=== PATIENT | female | born 1955 | race Caucasian/White ===

== ENCOUNTER 2017-07-20 02:41 | Day surgery (SDC) | payer OTHER ==
[2017-05-26 08:33] VITALS: Ht 157.5 cm; Wt 59.9 kg
[~2017-07-20] VITALS: Ht 157.5 cm; Wt 59.9 kg
[2017-07-20] VITALS (7 sets, daily range): BP systolic 96–112; BP diastolic 66–81
[~2017-07-20 02:41] MED LIST: ASCO-342 PO; ASPI81TA15 PO; ATOR10TA65 PO; ATOR20TA22 PO; BLOO-1764 MC; CALC1TAB32 PO; CHOL200022 PO; CIPR-214 PO; DEXL60CA6 PO; FAMO-67 PO; FAMO20TA28 PO; FLU45SYR17 IM; GLUC-198 PO; HYDR-2966 PO; HYDR-4308 PO; HYDR-4309 PO; IBUP600T22 PO; IRON18TA2 PO; LACT1CAP6 PO; LANC-1295 MC; LOR5/325 PO; LUTE6CAP11 PO; MAGN250T34 PO; MET500 PO; METF-420 PO; NITR-105 PO; OMEP40CA48 PO; ONDA-2 PO; ONDA4TAB97 PO; PHEN200T32 PO; PNEI IM; SUCR1TAB85 PO; TAMS0.4C25 PO; TOP100 PO; TRAZ-133 PO; UBIQ100C3 PO; ZOST19404 SQ
[2017-07-20] MEDS: NORMOSOL R SOLN(*) 1000 ML BAG 1,000 ML IV PRN ×3 (06:16→11:09)
[2017-07-20] MEDS ORDERED: metroNIDAZOLE* 500MG/100ML BAG 100 ML IVPB ONE (06:45)
[2017-07-20] MEDS ORDERED: MIDAZOLAM 2 MG/2 ML VIAL IVP PRN (06:45)
[2017-07-20] MEDS ORDERED: FAMOTIDINE 20 MG TAB PO ONE (06:45)
[2017-07-20] MEDS ORDERED: LEVOFLOXACIN/D5W*500 MG/100 ML 100 ML IVPB ONE (06:45)
[2017-07-20] MEDS ORDERED: LIDOCAINE/SOD BICARB 8.4% SYR ID ONE (06:45)
[2017-07-20] MEDS ORDERED: fentaNYL CITR 100 MCG/2 ML AMP ONE ×3 (06:53→09:39)
[2017-07-20] MEDS ORDERED: MIDAZOLAM 2 MG/2 ML VIAL ONE (06:53)
[2017-07-20] MEDS ORDERED: ROCURONIUM BROM 10 MG/ML 10 ML ONE (06:56)
[2017-07-20] MEDS ORDERED: LIDOCAINE MPF 1% 5 ML VIAL ONE (06:56)
[2017-07-20] MEDS ORDERED: ONDANSETRON 4 MG/2 ML VIAL ONE (06:56)
[2017-07-20] MEDS ORDERED: PROPOFOL EMUL(*) 10MG/ML 20 ML 20 ML ONE (06:56)
[2017-07-20] MEDS ORDERED: DEXAMETHASONE SOD PHOS 10MG/ML ONE (06:56)
[2017-07-20] MEDS ORDERED: IOPAMIDOL 61% 75 ML INFUS BTL 0 ML ONE (06:57)
[2017-07-20] MEDS ORDERED: ROPIVACAINE 0.5% 20 ML VIAL ONE (06:57)
[2017-07-20] MEDS ORDERED: DOCU-416 PO (09:17)
[2017-07-20] MEDS ORDERED: OXYC-854 PO (09:17)
--- NOTE | 2017-07-20 09:20 | Short(Outpt) Discharge Summary ---
Discharge Summary Reason for Hosp/Final Diag: (1) Cholelithiasis Status: Chronic Hospital Course & Plan: Robotic cholecystectomy completed without problems. Departure Discharge to: Home, Self Care Discharge Instructions Home Meds Active Scripts Docusate Sodium (COLACE) 100 Mg Capsule, 1 CAP PO BID, #30 CAP 0 Refills TAKE WITH A FULL GLASS OF WATER Prov:SHARON FERNANDES MD 07/20/17 Oxycodone Hcl/Acet 5/325 Mg (ENDOCET 5-325 TABLET) 1 Each Tablet, 1-2 TAB PO Q4H Y for PAIN, #30 TAB 0 Refills Prov:SHARON FERNANDES MD 07/20/17 Sucralfate (CARAFATE) 1 Gm Tablet, 1 GM PO ACHS, #120 TAB 0 Refills Prov:SHARON FERNANDES MD 06/20/17 Omeprazole (OMEPRAZOLE) 40 Mg Capsule.dr, 1 CAP PO BID, #60 CAP 3 Refills Prov:SHARON FERNANDES MD 06/20/17 Blood Sugar Diagnostic (FREESTYLE TEST STRIPS) 1 Each Strip, 1 EACH MC BID, # 100 STRIP 5 Refills Prov:MATHEUS LEPE MD 12/21/16 Lancets (FREESTYLE LANCETS) 1 Each Each, 1 EACH MC, #100 5 Refills Use to test BS twice daily Prov:MATHEUS LEPE MD 12/21/16 Atorvastatin Calcium (ATORVASTATIN CALCIUM) 10 Mg Tablet, 1 TAB PO QDAY, #90 TAB 3 Refills Prov:MATHEUS LEPE MD 12/13/16 Hydrochlorothiazide (HYDROCHLOROTHIAZIDE) 25 Mg Tablet, 1 TAB PO QODAY, #45 TAB 3 Refills Prov:MATHEUS LEPE MD 11/29/16 Reported Medications Cholecalciferol (Vitamin D3) (VITAMIN D) 2,000 Unit Tablet, 1 TAB PO QDAY, CAPSULE 08/11/16 Ubiquinol (UBIQUINOL) 100 Mg Capsule, 1 CAP PO QDAY, CAPSULE 03/24/16 Magnesium Oxide (MAGNESIUM) 250 Mg Tablet, 1 TAB PO BID 07/07/15 Lactobacillus Combination No.4 (PROBIOTIC) 1 Each Capsule, 1 CAP PO BID, CAPSULE 10/07/14 Glucosa Steinberg 2KCL/Chondroitin Steinberg (GLUCOSAMINE & CHONDROITIN CAP) 1 Each Capsule, 1 TAB PO DAILY, CAPSULE 8/3/14 Lutein (LUTEIN) 6 Mg Capsule, 1 CAP PO DAILY, CAPSULE 02/23/14 Follow up Referrals: General Surgery - 08/07/17 @ Surgery, General with Sharon Fernandes Md You have a follow up appointment scheduled with Dr. Fernandes on 08/07/17, at 9:00am. Diet: Regular Activity: As Tolerated Special Instructions: You may remove the white surgical dressings on 07/22/17, then you can shower. After showering, leave the incisions open to air but leave the steristrips in place until they fall off on their own. Do not immerse the incisions for 2 weeks. Problem Qualifiers (1) Cholelithiasis: Cholelithiasis location: gallbladder Cholecystitis presence: without cholecystitis Biliary obstruction: without biliary obstruction Qualified Codes: K80.20 - Calculus of gallbladder without cholecystitis without obstruction SHARON FERNANDES MD Jul 20, 2017 09:19
--- NOTE | 2017-07-20 09:27 | Post Operative Progress Note ---
Post Operative Progress Note Date: Jul 20, 2017 Time: 09:19 Surgeon: Moreno Dictation number: [id number] on M*Modal Anesthesia: GETA by Dr. Zurita Pre-Op Diagnosis: Symptomatic gallstones Post-Op Diagnosis: KEMI Findings: C/W dx Procedure(s): Robotic cholecystectomy Specimen Removed:(May be N/A): GB and contents Complications: None Fluids: See anesthesia record Estimated Blood Loss: Minimal Date OP Note Dictated: Jul 20, 2017 Time OP Note Dictated: 09:20 SHARON FERNANDES MD Jul 20, 2017 09:27
[2017-07-20] MEDS: PROMETHAZINE 25 MG/ML 1 ML AMP ONE (10:13)
--- NOTE | 2017-07-22 09:26 | OPERATIVE REPORT 1 ---
EVENT DATE: July 20, 2017 SURGEON: Pankaj Mayer MD ANESTHESIOLOGIST: Ryan Zurita MD ANESTHESIA: General PREOPERATIVE DIAGNOSIS Symptomatic gallstones. POSTOPERATIVE DIAGNOSIS Symptomatic gallstones. PROCEDURE PERFORMED Robotic cholecystectomy. ESTIMATED BLOOD LOSS Minimal. COMPLICATIONS None. CONDITION Stable. INDICATIONS This is a 62-year-old female who initially presented to the ER with severe epigastric abdominal pain. I diagnosed her with peptic ulcer disease, treated her with PPI therapy and Carafate, and performed upper GI endoscopy and identified the duodenal ulcers. She responded great to this therapy but incidentally in her workup she was seen to have a large gallstone that was impacted in the neck of the gallbladder. She was requesting to have her gallbladder removed in case this is a component of her symptoms and to prevent future risk of gallbladder infection due to the impacted nature of the gallstones. DESCRIPTION OF PROCEDURE The patient was brought to the operating room and placed supine on the operating table. General endotracheal anesthesia was administered, and her abdomen was prepped and draped in a sterile fashion. A timeout was completed. I injected the infraumbilical skin with 0.5% ropivacaine plain and then made a curvilinear smiley face type incision in the infraumbilical rim. I dissected down through the dermis and subcutaneous fat. I identified the midline fascia and made a vertical incision in the midline fascia, grasped the fascial edges with Pina clamps, and then retracted the abdominal wall away from the underlying viscera. I then bluntly entered the peritoneal cavity with my finger. I placed two interrupted 0 Vicryl sutures transversely through the vertical fascial defect and inserted a robotic Reuben 12 mm port through this wound and secured it in place with sutures. I insufflated the abdomen to a pressure of 15 mmHg and then under direct visualization placed three 8 mm ports in a angled line, all in line with the umbilicus but angled perpendicular to a line aiming toward the right upper quadrant. There was an 8 mm port placed in the left upper quadrant and the lateral clavicular area near the anterior axillary line and then another one placed midway between this port and the umbilical port and then a third 8 mm port placed in the right mid abdomen just below the level of the umbilicus. Next, we docked and targeted the robot without problems and inserted the instruments into the port and deployed them. I then scrubbed out and went to the console. I then retracted the fundus of the gallbladder toward the patient's right shoulder. The infundibulum was retracted toward the patient's right hip. I used hook electrocautery to divide the peritoneum overlying the infundibulum and up both the medial and lateral aspects of the gallbladder. I bluntly stripped the peritoneum and subperitoneal contents down from the gallbladder and used ICG fluoroscopy to identify the cystic duct and common bile duct. The common bile duct did sweep toward the patient's right, but there was enough cystic duct that I could stay well away from the common duct. The common duct was readily visible using ICG Firefly technology. I then cleaned off the duct and artery circumferentially, clipped the artery proximally and distally and divided between the clips, and clipped the duct at the infundibular cystic duct junction, placed two clips distal on the cystic duct, and then divided between the two clips closest to the gallbladder. I then divided the posterior attachment of the gallbladder and it from the gallbladder fossa and then placed the gallbladder in a surgical specimen retrieval bag and removed it through the umbilical port site. I irrigated and dried the right upper quadrant, inspected the gallbladder fossa as well as the cystic duct and artery stumps, and there were no bile leaks or bleeding at all. Everything was completely dry. I then had all of the robotic instruments removed, removed all of the ports, desufflated the abdomen, and then closed the midline fascia with a running 0 Vicryl suture and then tied all three of these down with good reapproximation of the fascial edges. I then closed the skin at each port site with 4-0 Monocryl subcuticular sutures. The skin was cleaned and dried, and Steri-Strips were applied, followed by sterile surgical dressings. The patient was awakened and extubated in the operating room and transported to the recovery room in stable condition, having tolerated the procedure without any apparent problems. VIVIANA
== END 2017-07-20 10:13 | disposition home or self-care (01) ==
LOC: OR 02:41
PROVIDERS: ATTEND Surgery
DX: K80.80 Other cholelithiasis without obstruction (principal); E11.9 Type 2 diabetes mellitus without complications
CPT/HCPCS: 36416; 47562; 82948; 88304; 94667; J1100; J1956; J2001; J2250; J2405; J2550; J2704; J2795; J3010; S2900; Q9967

== ENCOUNTER 2017-09-20 00:44 | Day surgery (SDC) | payer OTHER ==
[2017-05-26 08:33] VITALS: Ht 158.1 cm; Wt 61.2 kg
[~2017-09-20] VITALS: Ht 158.1 cm; Wt 61.2 kg
[~2017-09-20 00:44] MED LIST changes: +ASCO-191 PO; +DOCU-416 PO; +METF-410 PO; +OXYC-854 PO
[2017-09-20] MEDS ORDERED: MIDAZOLAM 2 MG/2 ML VIAL IVP PRN (08:10)
[2017-09-20] MEDS ORDERED: LIDOCAINE/SOD BICARB 8.4% SYR ID ONE (08:10)
[2017-09-20] MEDS ORDERED: NORMOSOL R SOLN(*) 1000 ML BAG 1,000 ML IV PRN (08:10)
[2017-09-20 08:23] VITALS: BP 126/73
[2017-09-20 09:27] VITALS: BP 103/64
[2017-09-20 09:38] VITALS: BP 101/66
--- NOTE | 2017-09-20 09:39 | Short(Outpt) Discharge Summary ---
Discharge Summary Reason for Hosp/Final Diag: (1) Duodenal ulcer Status: Chronic Hospital Course & Plan: EGD completed without problems. Departure Discharge to: Home, Self Care Discharge Instructions Home Meds Active Scripts Omeprazole (OMEPRAZOLE) 40 Mg Capsule.dr, 1 CAP PO QAM, #45 CAP 0 Refills Prov:SHARON FERNANDES MD 08/07/17 Blood Sugar Diagnostic (FREESTYLE TEST STRIPS) 1 Each Strip, 1 EACH MC BID, # 100 STRIP 5 Refills Prov:MATHEUS LEPE MD 12/21/16 Lancets (FREESTYLE LANCETS) 1 Each Each, 1 EACH MC, #100 5 Refills Use to test BS twice daily Prov:MATHEUS LEPE MD 12/21/16 Atorvastatin Calcium (ATORVASTATIN CALCIUM) 10 Mg Tablet, 1 TAB PO QDAY, #90 TAB 3 Refills Prov:MATHEUS LEPE MD 12/13/16 Hydrochlorothiazide (HYDROCHLOROTHIAZIDE) 25 Mg Tablet, 1 TAB PO QODAY, #45 TAB 3 Refills Prov:MATHEUS LEPE MD 11/29/16 Reported Medications Ascorbic Acid (VITAMIN C) 1,000 Mg Tablet, 1000 MG PO DAILY 09/15/17 Metformin Hcl (METFORMIN HCL) 500 Mg Tablet, 1 TAB PO HS, TAB 09/15/17 Metformin Hcl (METFORMIN HCL) 1,000 Mg Tablet, 1 TAB PO QDAY, TAB 09/15/17 Cholecalciferol (Vitamin D3) (VITAMIN D) 2,000 Unit Tablet, 1 TAB PO QDAY, CAPSULE 08/11/16 Ubiquinol (UBIQUINOL) 100 Mg Capsule, 1 CAP PO QDAY, CAPSULE 03/24/16 Magnesium Oxide (MAGNESIUM) 250 Mg Tablet, 1 TAB PO BID 07/07/15 Lactobacillus Combination No.4 (PROBIOTIC) 1 Each Capsule, 1 CAP PO BID, CAPSULE 10/07/14 Glucosa Steinberg 2KCL/Chondroitin Steinberg (GLUCOSAMINE & CHONDROITIN CAP) 1 Each Capsule, 1 TAB PO DAILY, CAPSULE 02/23/14 Lutein (LUTEIN) 6 Mg Capsule, 1 CAP PO DAILY, CAPSULE 02/23/14 Diet: Regular Activity: As Tolerated Special Instructions: Your upper endoscopy was completed without any problems. There were no ulcers or inflammation and everything thing has healed very well. You can stop taking omeprazole when you run out of pills in the current prescription. If you have reflux symptoms you can take [id number] ranitidine, pepcid, or omeprazole. If you find that you need to take these daily then let me know and I can prescibe a heartburn medication for you. Take NSAIDS (ibuprofen, motrin, advil, aleve, naproxen, or naprosyn) no more than once or twice a week at the most to prevent future ulcers. Acetaminophen (Tylenol) does not lead to ulcers and can be used as often as needed for headaches, etc (not to exceed 4000mg of acetaminophen per day). SHARON FERNANDES MD Sep 20, 2017 09:38
[2017-09-20 09:45] VITALS: BP 110/44
[2017-09-20 09:48] VITALS: BP 106/82
[2017-09-20 09:51] VITALS: BP 119/90
[2017-09-20] MEDS ORDERED: PROPOFOL(*)1000 MG/100 ML VIAL 100 ML ONE (12:36)
== END 2017-09-20 10:08 | disposition home or self-care (01) ==
LOC: OR 00:44
PROVIDERS: ATTEND Surgery
DX: K27.9 Peptic ulcer, site unspecified, unspecified as acute or chronic, without hemorrhage or perforation (principal); K44.9 Diaphragmatic hernia without obstruction or gangrene; E11.9 Type 2 diabetes mellitus without complications
CPT/HCPCS: 36416; 43235; 82948; J2704

== ENCOUNTER 2018-05-10 16:57 | Emergency (ER) | payer OTHER ==
[2017-05-26 08:33] VITALS: Wt 61.2 kg
[~2018-05-10 16:57] MED LIST changes: +CHOL200018 PO; -CHOL200022 PO; -HYDR-4308 PO; -HYDR-4309 PO; +HYDR-653 PO; +HYDR-654 PO; -METF-410 PO; +METF-450 PO; +METF-452 PO
--- NOTE | 2018-05-10 17:08 | ER Report ---
History and Physical Time Seen By MD: 17:08 HPI/ROS CHIEF COMPLAINT: Abdominal pain, dizziness HISTORY OF PRESENT ILLNESS: 62-year-old female patient presents to the emergency room with complaint of abdominal pain and dizziness. Patient states that the dizziness is intermittent. She states that the abdominal pain started last night and has continued all day today. She is not been able to eat or drink anything. She states that she has vomited several times. She states that she is not taking any medication for this. She notes that the stools were dark colored today as well as the emesis. She denies having any fevers, chills. She states she has pain in the left lower and upper quadrant. She denies any chest pain, shortness of breath. She states she is nota thing that makes the dizziness better or worse. REVIEW OF SYSTEMS: Respiratory: No cough, no dyspnea. Cardiovascular: No chest pain, no palpitations. Gastrointestinal: As noted above Musculoskeletal: No back pain. Allergies: Coded Allergies: Iodinated Contrast- Oral and IV Dye (Verified Allergy, Intermediate, rash, 05/10/18) Penicillins (Verified Allergy, Intermediate, RASH, 05/10/18) povidone-iodine (Verified Allergy, Intermediate, RASH, 05/10/18) Home Meds Active Scripts Scopolamine (Scopolamine) 1 Mg/3 Day Patch.td.3, 1 PATCH.72H TD Q3D PRN for DIZZINESS, #3 PATCH.72H Prov:TIAN LIZ 05/10/18 Hydrocodone Bit/Acetaminophen (HYDROCODON-ACETAMINOPHEN 5-325) 1 Each Tablet, 1 EACH PO Q4-6H PRN for PAIN, #6 TAB Prov:TIAN LIZ 05/10/18 Sucralfate (CARAFATE) 1 Gm Tablet, 1 GM PO QID, #60 TAB Take before meals and at bedtime. Crush the tablet and mix with water before taking. Prov:TIAN LIZ 05/10/18 Omeprazole (OMEPRAZOLE) 40 Mg Capsule.dr, 40 MG PO QDAY, #30 CAP Prov:TIAN LIZ 05/10/18 Hydrochlorothiazide (HYDROCHLOROTHIAZIDE) 25 Mg Tablet, 1 TAB PO QODAY, #45 TAB 2 Refills Prov:MATHEUS LEPE MD 03/15/18 Atorvastatin Calcium (ATORVASTATIN CALCIUM) 10 Mg Tablet, 1 TAB PO QDAY, #90 TAB 4 Refills Prov:MATHEUS LEPE MD 03/15/18 Metformin Hcl (METFORMIN HCL) 1,000 Mg Tablet, 1.5 TAB PO QDAY, #135 TAB 0 Refills take 1 tab in the am and half tab in the pm Prov:MATHEUS LEEP MD 03/12/18 Omeprazole (OMEPRAZOLE) 40 Mg Capsule.dr, 1 CAP PO QAM, #45 CAP 0 Refills Prov:SHARON FERNANDES MD 08/07/17 Blood Sugar Diagnostic (FREESTYLE TEST STRIPS) 1 Each Strip, 1 EACH MC BID, #100 STRIP 5 Refills Prov:MATHEUS LEPE MD 12/21/16 Lancets (FREESTYLE LANCETS) 1 Each Each, 1 EACH MC, #100 5 Refills Use to test BS twice daily Prov:MATHEUS LEPE MD 12/21/16 Reported Medications Ascorbic Acid (VITAMIN C) 1,000 Mg Tablet, 1000 MG PO DAILY 09/15/17 Metformin Hcl (METFORMIN HCL) 500 Mg Tablet, 1 TAB PO HS, TAB 09/15/17 Cholecalciferol (Vitamin D3) (VITAMIN D) 2,000 Unit Tablet, 1 TAB PO QDAY, CAPSULE 08/11/16 Ubiquinol (UBIQUINOL) 100 Mg Capsule, 1 CAP PO QDAY, CAPSULE 03/24/16 Magnesium Oxide (MAGNESIUM) 250 Mg Tablet, 1 TAB PO BID 07/07/15 Lactobacillus Combination No.4 (PROBIOTIC) 1 Each Capsule, 1 CAP PO BID, CAPSULE 10/07/14 Glucosa Steinberg 2KCL/Chondroitin Steinberg (GLUCOSAMINE & CHONDROITIN CAP) 1 Each Capsule, 1 TAB PO DAILY, CAPSULE 02/23/14 Lutein (LUTEIN) 6 Mg Capsule, 1 CAP PO DAILY, CAPSULE 02/23/14 Past Medical/Surgical History Patient has a past medical history of hypertension, hyperlipidemia, ulcers, cholecystitis, kidney stone, hip soreness, arthritis, back pain, narrowed ear canals, diabetes. Patient has surgical history of hysterectomy, cystoscopy, stent, kidney biopsy, cholecystectomy, appendectomy. Reviewed Nurses Notes: Yes Hx Smoking: No (briefly in high school) Smoking Status: Former Smoker Exposure to Second Hand Smoke?: No Hx Substance Use Disorder: No Hx Alcohol Use: No Constitutional Vital Sign - Last 24 Hours 05/10/18 05/10/18 05/10/18 05/10/18 17:05 17:08 17:12 17:27 Temp 99.0 Pulse 65 70 71 Resp 16 21 10 B/P (MAP) 132/85 (101) 132/85 Pulse Ox 97 98 O2 Delivery Room Air 05/10/18 05/10/18 05/10/18 05/10/18 17:30 17:42 17:57 18:00 Pulse 65 62 Resp 27 28 B/P (MAP) 124/77 (93) 113/77 (89) Pulse Ox 100 99 05/10/18 05/10/18 05/10/18 05/10/18 18:12 18:27 18:38 18:42 Pulse ??? 59 67 Resp 19 11 B/P (MAP) 124/77 (93) Pulse Ox 95 87 05/10/18 05/10/18 05/10/18 05/10/18 18:47 19:00 19:02 19:17 Pulse 63 69 ??? Resp 19 18 18 B/P (MAP) 119/80 (93) Pulse Ox 95 93 05/10/18 05/10/18 05/10/18 05/10/18 19:22 19:30 19:32 19:47 Pulse 72 68 Resp 9 0 B/P (MAP) 127/70 (89) 115/74 (88) Pulse Ox 90 88 05/10/18 05/10/18 05/10/18 05/10/18 19:52 20:00 20:07 20:22 Pulse 62 64 69 Resp 14 13 16 B/P (MAP) 114/71 (85) Pulse Ox 96 97 97 05/10/18 05/10/18 05/10/18 05/10/18 20:30 20:37 20:48 20:52 Pulse 63 85 ??? Resp 17 16 B/P (MAP) 108/72 (84) 138/88 (105) Pulse Ox 95 95 O2 Delivery Room Air Physical Exam General Appearance: The patient is alert, has no immediate need for airway protection and no current signs of toxicity. Respiratory: Chest is non tender, lungs are clear to auscultation. Cardiac: regular rate and rhythm Gastrointestinal: Abdomen is soft and tender in the left lower quadrant, no masses, bowel sounds normal. Rectal exam was done and occult stool was sent to the lab Musculoskeletal: Neck: Neck is supple and non tender. Extremities have full range of motion and are non tender. Skin: No rashes or lesions. DIFFERENTIAL DIAGNOSIS: After history and physical exam differential diagnosis was considered for abdominal pain including but not limited to appendicitis, cholecystitis, gastritis and urinary tract infection. Medical Decision Making Data Points Result Diagram: 05/10/18 1730 05/10/18 1730 Laboratory Hematology Test 05/10/18 17:30 05/10/18 18:41 05/10/18 19:17 Red Blood Count 5.12 M/uL (4.17-5.56) Mean Corpuscular Volume 88.2 fL (80.0-96.0) Mean Corpuscular Hemoglobin 31.1 pg (26.0-33.0) Mean Corpuscular Hemoglobin Concent 35.3 g/dL (32.0-36.0) Red Cell Distribution Width 13.0 % (11.5-14.5) Mean Platelet Volume 7.5 fL (7.2-11.1) Neutrophils (%) (Auto) 79.4 % (39.4-72.5) Lymphocytes (%) (Auto) 14.3 % (17.6-49.6) Monocytes (%) (Auto) 5.5 % (4.1-12.4) Eosinophils (%) (Auto) 0.2 % (0.4-6.7) Basophils (%) (Auto) 0.6 % (0.3-1.4) Nucleated RBC Relative Count (auto) 0.0 /100WBC Neutrophils # (Auto) 7.7 K/uL (2.0-7.4) Lymphocytes # (Auto) 1.4 K/uL (1.3-3.6) Monocytes # (Auto) 0.5 K/uL (0.3-1.0) Eosinophils # (Auto) 0.0 K/uL (0.0-0.5) Basophils # (Auto) 0.1 K/uL (0.0-0.1) Nucleated RBC Absolute Count (auto) 0.00 K/uL Sodium Level 138 mmol/L (137-145) Potassium Level 3.5 mmol/L (3.5-5.0) Chloride Level 99 mmol/L (98-107) Carbon Dioxide Level 24 mmol/L (22-31) Blood Urea Nitrogen 18 mg/dl (7-18) Creatinine 0.80 mg/dl (0.52-1.04) Glomerular Filtration Rate Calc > 60.0 Random Glucose 142 mg/dl (75-110) Calcium Level 9.5 mg/dl (8.4-10.2) Total Bilirubin 0.7 mg/dl (0.2-1.3) Aspartate Amino Transf (AST/SGOT) 24 U/L (0-35) Alanine Aminotransferase (ALT/SGPT) 28 U/L (0-56) Alkaline Phosphatase 89 U/L (0-126) C-Reactive Protein < 0.5 mg/dl (<1.0) Total Protein 8.3 g/dl (6.3-8.2) Albumin 4.4 g/dl (3.5-5.0) Amylase Level 98 U/L (0-110) Lipase 78 U/L (23-300) Urine Color Yellow Urine Clarity Clear Urine pH 8.0 pH (4.8-9.5) Urine Specific Magnolia 1.012 Urine Protein Negative mg/dL (NEGATIVE) Urine Glucose (UA) Negative mg/dL (NEGATIVE) Urine Ketones 20 mg/dL (NEGATIVE) Urine Blood Negative (NEGATIVE) Urine Nitrite Negative (NEGATIVE) Urine Bilirubin Negative (NEGATIVE) Urine Urobilinogen Negative mg/dL (0.2-1.9) Urine Leukocyte Esterase Negative (NEGATIVE) Urine RBC None /HPF (0-2/HPF) Urine WBC 8 /HPF (0-5/HPF) Urine Squamous Epithelial Cells Few /LPF (</=FEW) Urine Bacteria Negative /HPF (NONE-FEW) Urine Mucus None /HPF (NONE-FEW) Stool Occult Blood (IFOB) Positive (NEGATIVE) Chemistry Test 05/10/18 17:30 05/10/18 18:41 05/10/18 19:17 White Blood Count 9.7 k/uL (4.5-11.0) Red Blood Count 5.12 M/uL (4.17-5.56) Hemoglobin 15.9 g/dL (12.0-16.0) Hematocrit 45.1 % (34.0-47.0) Mean Corpuscular Volume 88.2 fL (80.0-96.0) Mean Corpuscular Hemoglobin 31.1 pg (26.0-33.0) Mean Corpuscular Hemoglobin Concent 35.3 g/dL (32.0-36.0) Red Cell Distribution Width 13.0 % (11.5-14.5) Platelet Count 283 K/uL (150-450) Mean Platelet Volume 7.5 fL (7.2-11.1) Neutrophils (%) (Auto) 79.4 % (39.4-72.5) Lymphocytes (%) (Auto) 14.3 % (17.6-49.6) Monocytes (%) (Auto) 5.5 % (4.1-12.4) Eosinophils (%) (Auto) 0.2 % (0.4-6.7) Basophils (%) (Auto) 0.6 % (0.3-1.4) Nucleated RBC Relative Count (auto) 0.0 /100WBC Neutrophils # (Auto) 7.7 K/uL (2.0-7.4) Lymphocytes # (Auto) 1.4 K/uL (1.3-3.6) Monocytes # (Auto) 0.5 K/uL (0.3-1.0) Eosinophils # (Auto) 0.0 K/uL (0.0-0.5) Basophils # (Auto) 0.1 K/uL (0.0-0.1) Nucleated RBC Absolute Count (auto) 0.00 K/uL Glomerular Filtration Rate Calc > 60.0 Calcium Level 9.5 mg/dl (8.4-10.2) Total Bilirubin 0.7 mg/dl (0.2-1.3) Aspartate Amino Transf (AST/SGOT) 24 U/L (0-35) Alanine Aminotransferase (ALT/SGPT) 28 U/L (0-56) Alkaline Phosphatase 89 U/L (0-126) C-Reactive Protein < 0.5 mg/dl (<1.0) Total Protein 8.3 g/dl (6.3-8.2) Albumin 4.4 g/dl (3.5-5.0) Amylase Level 98 U/L (0-110) Lipase 78 U/L (23-300) Urine Color Yellow Urine Clarity Clear Urine pH 8.0 pH (4.8-9.5) Urine Specific Magnolia 1.012 Urine Protein Negative mg/dL (NEGATIVE) Urine Glucose (UA) Negative mg/dL (NEGATIVE) Urine Ketones 20 mg/dL (NEGATIVE) Urine Blood Negative (NEGATIVE) Urine Nitrite Negative (NEGATIVE) Urine Bilirubin Negative (NEGATIVE) Urine Urobilinogen Negative mg/dL (0.2-1.9) Urine Leukocyte Esterase Negative (NEGATIVE) Urine RBC None /HPF (0-2/HPF) Urine WBC 8 /HPF (0-5/HPF) Urine Squamous Epithelial Cells Few /LPF (</=FEW) Urine Bacteria Negative /HPF (NONE-FEW) Urine Mucus None /HPF (NONE-FEW) Stool Occult Blood (IFOB) Positive (NEGATIVE) Urinalysis Test 05/10/18 18:41 Urine Color Yellow Urine Clarity Clear Urine pH 8.0 pH (4.8-9.5) Urine Specific Magnolia 1.012 Urine Protein Negative mg/dL (NEGATIVE) Urine Glucose (UA) Negative mg/dL (NEGATIVE) Urine Ketones 20 mg/dL (NEGATIVE) Urine Blood Negative (NEGATIVE) Urine Nitrite Negative (NEGATIVE) Urine Bilirubin Negative (NEGATIVE) Urine Urobilinogen Negative mg/dL (0.2-1.9) Urine Leukocyte Esterase Negative (NEGATIVE) Urine RBC None /HPF (0-2/HPF) Urine WBC 8 /HPF (0-5/HPF) Urine Squamous Epithelial Cells Few /LPF (</=FEW) Urine Bacteria Negative /HPF (NONE-FEW) Urine Mucus None /HPF (NONE-FEW) EKG/Imaging Imaging EXAMINATION: CT head without IV contrast HISTORY: Dizziness. TECHNIQUE: Axial CT images of the head were obtained from the vertex to the skull base without IV contrast, with coronal and sagittal 2D reconstructed images. One of the following dose optimization techniques was utilized in the performance of this exam: Automated exposure control; adjustment of the mA and/or kV according to the patient's size; or use of an iterative rec onstruction technique. Specific details can be referenced in the facility's radiology CT exam operational policy. COMPARISON: None. FINDINGS: There is mild age-appropriate parenchymal volume loss, with mild patchy low attenuation in the deep white matter, compatible with chronic small vessel ischemic change. Intracranial vascular calcifications. No CT evidence of intracranial hemorrhage, mass lesion, or acute infarct. No midline shift or extra-axial fluid collections. Ruelas-white differentiation is maintained. The calvarium is intact. The partially visualized paranasal sinuses and mastoid air cells are unopacified. IMPRESSION: 1. No CT evidence of acute intracranial pathology. 2. Mild chronic age-related changes. Report Dictated By: Hira Felton MD at 05/10/2018 6:39 PM Report E-Signed By: Hira Felton MD at 05/10/2018 6:43 PM EXAMINATION: CT abdomen and pelvis without IV contrast HISTORY: Abdominal pain. Nausea. TECHNIQUE: Axial CT images of the abdomen and pelvis were obtained without IV contrast, with coronal and sagittal 2D reconstructed images. One of the following dose optimization techniques was utilized in the performance of this exam: Automated exposure control; adjustment of the mA and/or kV according to the patient's size; or use of an iterative reconstruction technique. Specific details can be referenced in the facility's radiology CT exam operational policy. COMPARISON: CT abdomen/pelvis with IV contrast 06/14/2017. FINDINGS: Evaluation of the solid and viscus parenchymal organs is limited without the benefit of IV contrast. Liver: Negative. Gallbladder and bile ducts: Cholecystectomy, new since the prior exam. No fluid collection or hematoma along the gallbladder fossa. No bile duct dilatation. Spleen: Negative. Pancreas: Negative. Adrenal glands: Negative. Kidneys: Negative. No urinary calculi or hydronephrosis. Bowel and peritoneum: The small bowel and colon are normal in caliber. No free fluid or free intraperitoneal air. Pelvic structures: Hysterectomy. Lymph node assessment: Negative. Vessels: Mild vascular calcifications. Normal caliber abdominal aorta. Musculoskeletal: No acute osseous findings. Chronic degenerative changes along the lumbar spine, with moderate disc space narrowing at L4-L5 and L5-S1. Body wall: Negative. Lung bases: Negative. IMPRESSION: 1. No acute findings in the abdomen or pelvis by noncontrast CT imaging. 2. Cholecystectomy, new since the prior CT. Report Dictated By: Hira Felton MD at 05/10/2018 6:43 PM Report E-Signed By: Hira Felton MD at 05/10/2018 6:48 PM ED Course/Re-evaluation ED Course Patient was admitted to examine, history and physical were obtained. Differential diagnoses were considered. I examination lungs are clear, heart was regular, abdomen was soft and tender in the left upper and lower quadrants. Occult stool was done which was positive. His CBC, CMP, urinalysis were done. Results were unremarkable. CT scan of the abdomen was done, CT scan of the head was also done. CT scan of the head was normal as was the CT scan of the abdomen. I believe that the cause of her pain is likely blood traveling through the digestive tract. Since she's not anemic we will go ahead and place her on Ca rafate and omeprazole. We will have her follow-up with Dr. Fernandes. She is to call to make an appointment. Patient will be given some pain medication to help her with her pain tonight. As patient was being discharged with nurse asked what was going to be done for the dizziness. It is my understanding that the dizziness had resolved. However we will go ahead and place her on a scopolamine patch as she does have some mild dizziness. Decision to Disposition Date: May 10, 2018 Decision to Disposition Time: 20:40 Depart Departure Latest Vital Signs Vital Signs Date Time Temp Pulse Resp B/P (MAP) Pulse Ox O2 Delivery O2 Flow Rate FiO2 05/10/18 20:52 ??? 05/10/18 20:48 16 138/88 (105) 95 Room Air 05/10/18 17:08 99.0 Impression: Primary Impression: GI bleed Additional Impression: Abdominal pain Condition: Improved Disposition: HOME OR SELF-CARE Referrals: MATHEUS LEPE MD (PCP) SHARON FERNANDES MD New Scripts Ondansetron (ZOFRAN ODT) 4 Mg Tab.rapdis 4 MG PO Q6H PRN for NAUSEA/VOMITING, #20 TAB.JENNIFER Prov: TIAN LIZ 05/10/18 Scopolamine (Scopolamine) 1 Mg/3 Day Patch.td.3 1 PATCH.72H TD Q3D PRN for DIZZINESS, #3 PATCH.72H Prov: TIAN LIZ 05/10/18 Hydrocodone Bit/Acetaminophen (HYDROCODON-ACETAMINOPHEN 5-325) 1 Each Tablet 1 EACH PO Q4-6H PRN for PAIN, #6 TAB Prov: TIAN LIZ 05/10/18 Sucralfate (CARAFATE) 1 Gm Tablet 1 GM PO QID, #60 TAB Take before meals and at bedtime. Crush the tablet and mix with water before taking. Prov: TIAN LIZ 05/10/18 Omeprazole (OMEPRAZOLE) 40 Mg Capsule. 40 MG PO QDAY, #30 CAP Prov: TIAN LIZ 05/10/18 Patient Instructions: Gastrointestinal Bleeding (ED) Additional Instructions: Increase fluid intake. Get plenty of rest. Follow up with Dr. Fernandes. Avoid foods that upset your stomach. I believe that the pain is caused from bleeding in the digestive tract. Problem Qualifiers Primary Impression: GI bleed GI bleed type/associated pathology: unspecified gastrointestinal hemorrhage type Qualified Codes: K92.2 - Gastrointestinal hemorrhage, unspecified Additional Impression: Abdominal pain Abdominal location: left upper quadrant Qualified Codes: R10.12 - Left upper quadrant pain TIAN LIZ BUILDING ESTIMATOR May 10, 2018 17:08
[2018-05-10] MEDS ORDERED: NS(*) 0.9% 500 ML BAG 500 ML IV ONE (17:24)
[2018-05-10] MEDS ORDERED: ONDANSETRON 4 MG/2 ML VIAL IVP ONE (17:25)
[2018-05-10 17:39] LABS: PLATELET COUNT, AUTOMATED 283 K/uL (150-450)
--- NOTE | 2018-05-10 18:47 | RADIOLOGY IMAGING REPORT ---
FACILITY: [facility] - [place] PATIENT NAME: Suzy Smith : 1955 MR: [id number] V: [id number] EXAM DATE: ORDERING PHYSICIAN: TIAN LIZ TECHNOLOGIST: Location: [facility] - [place] Patient: Suzy Smith : 1955 Visit/Account:[id number] Date of Sevice: 05/10/2018 EXAMINATION: CT head without IV contrast HISTORY: Dizziness. TECHNIQUE: Axial CT images of the head were obtained from the vertex to the skull base without IV c ontrast, with coronal and sagittal 2D reconstructed images. One of the following dose optimization techniques was utilized in the performance of this exam: Autom ated exposure control; adjustment of the mA and/or kV according to the patient's size; or use of an i terative reconstruction technique. Specific details can be referenced in the facility's radiology C T exam operational policy. COMPARISON: None. FINDINGS: There is mild age-appropriate parenchymal volume loss, with mild patchy low attenuation in the deep w delphine matter, compatible with chronic small vessel ischemic change. Intracranial vascular calcificatio ns. No CT evidence of intracranial hemorrhage, mass lesion, or acute infarct. No midline shift or extra-a xial fluid collections. Ruelas-white differentiation is maintained. The calvarium is intact. The partially visualized paranasal sinuses and mastoid air cells are unopaci fied. IMPRESSION: 1. No CT evidence of acute intracranial pathology. 2. Mild chronic age-related changes. Report Dictated By: Hira Felton MD at 05/10/2018 6:39 PM Report E-Signed By: Hira Felton MD at 05/10/2018 6:43 PM WSN:[id number]
--- NOTE | 2018-05-10 18:52 | RADIOLOGY IMAGING REPORT ---
FACILITY: [facility] PATIENT NAME: Suzy Smith : 1955 MR: [id number] V: [id number] EXAM DATE: ORDERING PHYSICIAN: TIAN LIZ TECHNOLOGIST: Location: [facility] - [place] Patient: Suzy Smith : 1955 Visit/Account:[id number] Date of Sevice: 05/10/2018 EXAMINATION: CT abdomen and pelvis without IV contrast HISTORY: Abdominal pain. Nausea. TECHNIQUE: Axial CT images of the abdomen and pelvis were obtained without IV contrast, with hernandez l and sagittal 2D reconstructed images. One of the following dose optimization techniques was utilized in the performance of this exam: Autom ated exposure control; adjustment of the mA and/or kV according to the patient's size; or use of an i terative reconstruction technique. Specific details can be referenced in the facility's radiology C T exam operational policy. COMPARISON: CT abdomen/pelvis with IV contrast 06/14/2017. FINDINGS: Evaluation of the solid and viscus parenchymal organs is limited without the benefit of IV contrast. Liver: Negative. Gallbladder and bile ducts: Cholecystectomy, new since the prior exam. No fluid collection or hemato ma along the gallbladder fossa. No bile duct dilatation. Spleen: Negative. Pancreas: Negative. Adrenal glands: Negative. Kidneys: Negative. No urinary calculi or hydronephrosis. Bowel and peritoneum: The small bowel and colon are normal in caliber. No free fluid or free intrape ritoneal air. Pelvic structures: Hysterectomy. Lymph node assessment: Negative. Vessels: Mild vascular calcifications. Normal caliber abdominal aorta. Musculoskeletal: No acute osseous findings. Chronic degenerative changes along the lumbar spine, wi th moderate disc space narrowing at L4-L5 and L5-S1. Body wall: Negative. Lung bases: Negative. IMPRESSION: 1. No acute findings in the abdomen or pelvis by noncontrast CT imaging. 2. Cholecystectomy, new since the prior CT. Report Dictated By: Hira Felton MD at 05/10/2018 6:43 PM Report E-Signed By: Hira Felton MD at 05/10/2018 6:48 PM WSN:[id number]
[2018-05-10] MEDS ORDERED: MORPHINE 4 MG/ML SDV IVP ONE (19:15)
[2018-05-10] MEDS ORDERED: OMEP40CA48 PO (20:37)
[2018-05-10] MEDS ORDERED: SUCR1TAB85 PO (20:37)
[2018-05-10] MEDS ORDERED: HYDR-385 PO (20:37)
[2018-05-10] MEDS ORDERED: SUCRALFATE 1 GM TAB PO ONE (20:45)
[2018-05-10] MEDS ORDERED: PANTOPRAZOLE SOD 40 MG TABEC PO ONE (20:45)
[2018-05-10] MEDS ORDERED: ACET/HYDROC 5/325MG TH ER ONLY 2 TAB/BOTTLE PO ONE (20:45)
[2018-05-10 20:48] VITALS: BP 138/88
[2018-05-10] MEDS ORDERED: SCOP1PAT16 TD (20:56)
[2018-05-10] MEDS ORDERED: SCOPOLAMINE 1.5 MG PATCH TD ONE (21:00)
[2018-05-10] MEDS ORDERED: ONDANSETRON 4 MG ODT TH SL ONE (21:25)
[2018-05-10] MEDS ORDERED: ONDA4TAB PO (21:25)
--- NOTE | 2018-05-11 09:11 | EKG ---
FACILITY: [facility] PATIENT NAME: LUIS ABERNATHY : [id number] MR: [id number] V: [id number] EXAM DATE: ORDERING PHYSICIAN: TIAN LIZ TECHNOLOGIST: CHAUNCEY Test Reason : VOMITTING Blood Pressure : / mmHG Vent. Rate : 071 BPM Atrial Rate : 071 BPM P-R Int : 134 ms QRS Dur : 078 ms QT Int : 408 ms P-R-T Axes : 058 059 057 degrees QTc Int : 443 ms Normal sinus rhythm Normal ECG When compared with ECG of 05-JUL-2017 15:30, No significant change was found Confirmed by SHRAON MAYEN ([id number]) on 05/11/2018 10:45:51 AM Referred By: TIAN Confirmed By:SHARON MAYEN
== END 2018-05-10 20:47 | disposition home or self-care (01) ==
LOC: ER 17:17
DX: K92.2 Gastrointestinal hemorrhage, unspecified (principal); R10.12 Left upper quadrant pain
CPT/HCPCS: 70450; 74176; 81001; 82150; 82274; 83690; 85025; 86140; 87077; 87088; 87186; 93005; 96374; 96375; 99284; J2270; J2405; J7040; 82040; 82247; 82310; 82374; 82435; 82565; 82947; 84075; 84132; 84155; 84295; 84450; 84460; 84520

== ENCOUNTER → 2018-10-09 | Outpatient (CLI) | payer OTHER ==
[2017-05-26 08:33] VITALS: BMI 25.2
[~2018-10-09] MED LIST changes: +HYDR-385 PO; +ONDA4TAB PO; +RANI150C17 PO; +SCOP1PAT16 TD
--- NOTE | 2018-10-10 17:24 | RADIOLOGY IMAGING REPORT ---
FACILITY: [facility] [place]IENT NAME: LUIS ABERNATHY : [id number] MR: [id number] V: [id number] EXAM DATE: [id number] ORDERING PHYSICIAN: ZAHRA HOLDER TECHNOLOGIST: Barby Light PROCEDURE:BILATERAL DIGITAL SCREENING MAMMOGRAM WITH CAD ASSISTED INTERPRETATION & 3D TOMOSYNTHESIS COMPARISON:Prior mammograms dated 11/30/16, 07/01/14, 07/11/13, 05/23/12 INDICATIONS:screening FINDINGS: The breasts are heterogeneously dense which can obscure small masses. The parenchymal pattern has remained stable when allowing for differences in mammographic technique & patient positioning. DIAGNOSTIC CATEGORY 1--NEGATIVE. RECOMMENDATIONS: ROUTINE MAMMOGRAM AND CLINICAL EVALUATION. IMPRESSION: BIRADS 1: Negative. No significant abnormality is seen. Dictated by: Ophelia Watson M.D. on 10/09/2018 at 17:13 Transcribed by: HARLEY on 10/10/2018 at 9:58 Approved by: Ophelia Watson M.D. on 10/10/2018 at 17:23 [facility]
== END ==
LOC: MAMO 01:50
PROVIDERS: ATTEND Nurse Practitioner Family
DX: Z12.31 Encounter for screening mammogram for malignant neoplasm of breast (principal)
CPT/HCPCS: 77063; 77067